=== PATIENT | female | born 1960 | race Caucasian/White ===

== ENCOUNTER 2016-11-28 12:37 | Emergency (ER) | payer BC ==
[~2016-11-28] VITALS: Ht 167.6 cm; Wt 93.0 kg
[2016-11-28] MEDS ORDERED: THYR15TA PO (12:48)
[2016-11-28] MEDS ORDERED: HYDR25TA4 PO (12:48)
[2016-11-28] MEDS ORDERED: ASPIRIN 81 MG TAB.CHEW PO ONE (13:00)
[2016-11-28 13:16] LABS: BASOPHILS # (AUTO) 0.1 K/uL (0.0-8.0); BASOPHILS % (AUTO) 0.8 % (0.0-2.0); EOSINOPHILS # (AUTO) 0.1 K/uL (0.0-0.7); EOSINOPHILS % (AUTO) 1.9 % (0.0-7.0); HEMOGLOBIN 14.8 G/DL (12.0-16.0); LYMPHOCYTES % (AUTO) 27.4 % (20.5-51.5); MEAN CORPUSCULAR HEMOGLOBIN 27.7 UUG (27.0-31.0); MEAN CORPUSCULAR HGB CONC 32 g/dL (32.0-37.0); MEAN CORPUSCULAR VOLUME 86.4 FL (81.0-99.0); MONOCYTES # (AUTO) 0.5 K/UL (0.1-1.30); MONOCYTES % (AUTO) 6.3 % (0.0-11.0); NEUTROPHILS # (AUTO) 4.7 K/UL (1.8-8.9); NEUTROPHILS % (AUTO) 63.6 % (38.5-71.5); PLATELET COUNT (AUTO) 264 K/UL (150-450); RED BLOOD CELL COUNT(AUTO) 5.33 MIL/UL (4.2-5.4); WHITE BLOOD COUNT (AUTO) 7.4 K/UL (4.0-11.2)
[2016-11-28] MEDS ORDERED: DICYCLOMINE HCL 20 MG TABLET PO STA (13:22)
[2016-11-28 13:23] LABS: CREATININE 0.7 mg/dL (0.6-1.3); POTASSIUM 3.9 mmol/L (3.5-5.1)
[2016-11-28] MEDS ORDERED: ASPIRIN 81 MG TAB.CHEW ONE (13:25)
[2016-11-28 13:29] LABS: BILIRUBIN,DIRECT 0.1 mg/dL (0.0-0.2); BILIRUBIN,TOTAL 0.4 mg/dL (0.2-1.0); TOTAL PROTEIN, SERUM 7.5 g/dL (6.4-8.2)
[2016-11-28] MEDS ORDERED: FAMOTIDINE. 20 MG/2 ML VIAL IV ONE ×2 (13:30→14:11)
[2016-11-28] MEDS ORDERED: MAG HYDROX/AL HYDROX/SIMETH 30 ML LIQUID UDC PO ONE (13:30)
[2016-11-28] MEDS ORDERED: MAG HYDROX/AL HYDROX/SIMETH 30 ML LIQUID UDC ONE (14:10)
--- NOTE | 2016-11-28 14:46 | NUR ---
Patient discharged to home in stable conditon. Written and verbal after care instructions given. Patient verbalizes understanding of instructions.pt walks in steady gait. pt says feels better. pt already took the heplock out.
[2016-11-28 14:47] VITALS: BP 121/83
== END 2016-11-28 14:47 | disposition home or self-care (01) ==
LOC: ER 12:37
DX: R07.9 Chest pain, unspecified (principal); I10 Essential (primary) hypertension; E03.9 Hypothyroidism, unspecified
CPT/HCPCS: 36415; 71010; 80048; 80076; 83690; 84443; 84484; 85025; 85730; 93005; 99285; A4663; 70030-TC; J3490

== ENCOUNTER 2017-02-08 21:29 | Emergency (ER) | payer BC ==
[~2017-02-08] VITALS: Ht 167.6 cm; Wt 90.7 kg
[~2017-02-08 21:29] MED LIST: HYDR25TA4 PO; THYR15TA PO
[2017-02-08] MEDS ORDERED: INSULIN REGULAR, HUMAN 300 UNIT/3 ML VIAL IV ONE (23:00)
[2017-02-08] MEDS ORDERED: IV NORMAL SALINE 1000 ML BAG IV ONE (23:00)
--- NOTE | 2017-02-08 23:16 | NUR ---
Patient discharged to home in stable conditon. Written and verbal after care instructions given. Patient verbalizes understanding of instructions.
== END 2017-02-08 23:18 | disposition home or self-care (01) ==
LOC: ER 21:30
DX: S93.504A Unspecified sprain of right lesser toe(s), initial encounter (principal); H66.91 Otitis media, unspecified, right ear; F17.200 Nicotine dependence, unspecified, uncomplicated; I10 Essential (primary) hypertension; E03.9 Hypothyroidism, unspecified; W22.8XXA Striking against or struck by other objects, initial encounter; Y93.89 Activity, other specified; Y92.9 Unspecified place or not applicable; Y99.9 Unspecified external cause status
CPT/HCPCS: 73660; 99284; A4663

== ENCOUNTER 2021-03-25 18:27 | Emergency (ER) | payer BC, OTHER ==
[~2021-03-25] VITALS: Ht 167.6 cm; Wt 99.8 kg
[~2021-03-25 18:27] MED LIST changes: +BENAZEPRIL/HCTZ PO; -HYDR25TA4 PO; -THYR15TA PO; +THYR90TA PO
[2021-03-25] MEDS ORDERED: OXYC-128 PO (19:17)
[2021-03-25] MEDS ORDERED: CLON0.1T PO (19:30)
--- NOTE | 2021-03-25 19:42 | NUR ---
Patient discharged to home in stable condition. PB=387/51, O2 sat=96%. Written and verbal after care instructions given. Patient verbalizes understanding of instructions. Stressed follow up or return to ER for worsening s/s.
[2021-03-25 19:48] VITALS: BP 130/51
== END 2021-03-25 19:52 | disposition home or self-care (01) ==
LOC: ER 18:30
DX: S00.33XA Contusion of nose, initial encounter (principal); W10.9XXA Fall (on) (from) unspecified stairs and steps, initial encounter; Y92.89 Other specified places as the place of occurrence of the external cause; E89.0 Postprocedural hypothyroidism; I10 Essential (primary) hypertension; Z79.890 Hormone replacement therapy; Z79.899 Other long term (current) drug therapy
CPT/HCPCS: 70160; A4663

== ENCOUNTER 2022-03-14 11:48 | Emergency (ER) | payer OTHER ==
[~2022-03-14] VITALS: Ht 167.6 cm; Wt 99.8 kg
[~2022-03-14 11:48] MED LIST changes: +CLON0.1T PO; +OXYC-128 PO
--- NOTE | 2022-03-14 12:27 | NUR ---
PT IS IN ROOM #1A. DR HUFFMAN EVALUATED THE PT.
[2022-03-14] MEDS ORDERED: MECLIZINE HCL 25 MG TABLET PO ONE (12:45)
[2022-03-14] MEDS ORDERED: MECLIZINE HCL 25 MG TABLET ONE (12:50)
[2022-03-14 12:55] LABS: HEMATOCRIT 41.2 % (31.2-41.9); MEAN CORPUSCULAR HEMOGLOBIN 29.6 uug (24.7-32.8); MEAN CORPUSCULAR VOLUME 85.3 fL (75.5-95.3); PLATELET COUNT (AUTO) 237 K/uL (179-408)
[2022-03-14 13:00] LABS: *BILIRUBIN,URIN NEGATIVE (NEGATIVE); *CLARITY,URINE CLEAR (CLEAR); *COLOR,URINE YELLOW (YELLOW); *KETONES,URINE NEGATIVE (NEGATIVE); *UROBILINOGEN,URINE 0.2 E.U./dl (NORMAL); LEUKOCYTE ESTERASE ,URINE 1+ (NEGATIVE); NITRITE, URINE NEGATIVE (NEGATIVE); UGLUCOSE NEGATIVE (NEGATIVE)
[2022-03-14 13:02] LABS: *BLOOD, URINE TRACE (NEGATIVE)
[2022-03-14 13:03] LABS: CREATININE 0.9 mg/dL (0.6-1.3); POTASSIUM 3.6 mmol/L (3.5-5.1)
[2022-03-14 13:15] LABS: THYROID STIMULATING HORMONE 1.503 mIU/mL (0.358-3.740)
[2022-03-14 13:20] LABS: BILIRUBIN,TOTAL 0.4 mg/dL (0.2-1.0); TOTAL PROTEIN, SERUM 7.4 g/dL (6.4-8.2)
[2022-03-14 13:25] LABS: BACTERIA,URINE FEW /HPF (NONE SEEN); RBC,URINE 0-3 /HPF (0-3); SQUAMOUS EPITHELIAL CELL,UR FEW /HPF (NONE SEEN)
[2022-03-14] MEDS ORDERED: CEFU500T66 PO (14:32)
[2022-03-14] MEDS ORDERED: MECL-159 PO (14:32)
--- NOTE | 2022-03-14 17:39 | NUR ---
PT WAS D/C'd TO HOME. D/C INSTRUCTIONS GIVEN TO THE PT BY DR HUFFMAN.
[2022-03-14 17:40] VITALS: BP 142/86
== END 2022-03-14 17:40 | disposition home or self-care (01) ==
LOC: ER 11:51
DX: N39.0 Urinary tract infection, site not specified (principal); R42 Dizziness and giddiness; R53.1 Weakness; R53.83 Other fatigue; E89.0 Postprocedural hypothyroidism; Z79.890 Hormone replacement therapy; I10 Essential (primary) hypertension
CPT/HCPCS: 36415; 71045; 84443; 84484; 85025; 87086; 93005; A4663; J7040; J8597

== ENCOUNTER 2022-08-29 15:57 | Emergency (ER) | payer OTHER ==
[~2022-08-29] VITALS: Ht 167.6 cm; Wt 90.7 kg
[~2022-08-29 15:57] MED LIST changes: +CEFU500T66 PO; +MECL-159 PO
--- NOTE | 2022-08-29 16:16 | NUR ---
Pt seen by . Safety measures in place. Will continue to monitor.
--- NOTE | 2022-08-29 17:25 | NUR ---
Patient discharged to home in stable condition. Written and verbal after care instructions given. Patient verbalizes understanding of instructions. Stressed follow up or return to ER for worsening s/s.
[2022-08-29 17:26] VITALS: BP 153/78
== END 2022-08-29 17:26 | disposition home or self-care (01) ==
LOC: ER 15:59
DX: T17.228A Food in pharynx causing other injury, initial encounter (principal); I10 Essential (primary) hypertension; E03.9 Hypothyroidism, unspecified; F17.210 Nicotine dependence, cigarettes, uncomplicated; Z79.899 Other long term (current) drug therapy; X58.XXXA Exposure to other specified factors, initial encounter; Y93.89 Activity, other specified; Y92.89 Other specified places as the place of occurrence of the external cause; Y99.8 Other external cause status
CPT/HCPCS: 70490; A4663

== ENCOUNTER 2023-06-21 16:08 | Emergency (ER) | payer MEDICAID, OTHER ==
[~2023-06-21] VITALS: Ht 167.6 cm; Wt 88.5 kg
[2023-06-21 16:42] LABS: *BILIRUBIN,URIN NEGATIVE (NEGATIVE); *BLOOD, URINE 1+ (NEGATIVE); *CLARITY,URINE CLEAR (CLEAR); *COLOR,URINE YELLOW (YELLOW); *KETONES,URINE TRACE (NEGATIVE); *PROTEIN,URINE NEGATIVE (NEGATIVE); *UROBILINOGEN,URINE 0.2 E.U./dl (NORMAL); LEUKOCYTE ESTERASE ,URINE TRACE (NEGATIVE); NITRITE, URINE NEGATIVE (NEGATIVE); PH,URINE 5.5 (5.0-8.0); UGLUCOSE NEGATIVE (NEGATIVE)
[2023-06-21 16:45] LABS: WBC,URINE 0-3 /HPF (0-3)
[2023-06-21 16:59] LABS: BASOPHILS # (AUTO) 0.1 K/UL (0.0-0.2); BASOPHILS % (AUTO) 1.7 % (0.0-2.0); EOSINOPHILS # (AUTO) 0.1 K/uL (0.0-0.7); HEMOGLOBIN 15.3 g/dL (10.9-14.3); LYMPHOCYTES # (AUTO) 1.5 K/uL (0.8-4.8); LYMPHOCYTES % (AUTO) 23.5 % (20.5-51.5); MEAN CORPUSCULAR HEMOGLOBIN 29.1 uug (24.7-32.8); MEAN CORPUSCULAR HGB CONC 33 g/dL (32.3-35.6); MEAN CORPUSCULAR VOLUME 87.5 fL (75.5-95.3); MONOCYTES # (AUTO) 0.4 K/uL (0.1-1.30); MONOCYTES % (AUTO) 5.5 % (0.0-11.0); NEUTROPHILS # (AUTO) 4.4 K/uL (1.8-8.9); NEUTROPHILS % (AUTO) 68.3 % (38.5-71.5); PLATELET COUNT (AUTO) 279 K/uL (179-408); RED BLOOD CELL COUNT(AUTO) 5.26 MIL/uL (3.63-4.92); RED CELL DISTRIBUTION WIDTH 14.2 % (12.3-17.7); WHITE BLOOD COUNT (AUTO) 6.5 K/uL (3.8-11.8)
[2023-06-21 17:02] LABS: DIFFERENTIAL COMMENT 1
[2023-06-21 17:10] LABS: CALCIUM 9.4 mg/dL (8.5-10.1); CREATININE 0.8 mg/dL (0.6-1.3); POTASSIUM 4.4 mmol/L (3.5-5.1)
[2023-06-21 17:15] LABS: ALBUMIN 3.8 g/dL (3.4-5.0); BILIRUBIN,DIRECT 0.2 mg/dL (0.0-0.2); BILIRUBIN,TOTAL 0.6 mg/dL (0.2-1.0); TOTAL PROTEIN, SERUM 7.9 g/dL (6.4-8.2)
[2023-06-21] MEDS ORDERED: LEVO125T8 PO (17:38)
[2023-06-21] MEDS ORDERED: BENA1TAB18 PO (17:38)
[2023-06-21] MEDS ORDERED: IBUP-1958 PO (18:44)
[2023-06-21 18:58] VITALS: BP 118/79; TEMP 98.2; O2SAT 98
== END 2023-06-21 18:59 | disposition home or self-care (01) ==
LOC: ER 16:09
DX: R10.31 Right lower quadrant pain (principal); E03.9 Hypothyroidism, unspecified; F17.200 Nicotine dependence, unspecified, uncomplicated; Z98.890 Other specified postprocedural states; Z79.899 Other long term (current) drug therapy
CPT/HCPCS: 36415; 83690; 85025; A4606; A4663

== ENCOUNTER 2023-09-20 12:43 | Emergency (ER) | payer MEDICAID ==
[~2023-09-20 12:43] MED LIST changes: +BENA1TAB18 PO; +IBUP-1958 PO; +LEVO125T8 PO
== END 2023-09-20 13:27 | disposition left against medical advice (07) ==
LOC: ER 12:45
DX: J34.89 Other specified disorders of nose and nasal sinuses (principal); Z53.21 Procedure and treatment not carried out due to patient leaving prior to being seen by health care provider

== ENCOUNTER 2023-09-20 15:43 | Emergency (ER) | payer MEDICAID ==
[~2023-09-20] VITALS: Ht 167.6 cm; Wt 90.7 kg
[2023-09-20 15:44] VITALS: O2SAT 98
== END 2023-09-20 18:10 | disposition home or self-care (01) ==
LOC: ER 16:13
DX: S00.33XA Contusion of nose, initial encounter (principal); R51.9 Headache, unspecified; E03.9 Hypothyroidism, unspecified; F17.200 Nicotine dependence, unspecified, uncomplicated; Z90.49 Acquired absence of other specified parts of digestive tract; W18.39XA Other fall on same level, initial encounter; Y93.89 Activity, other specified; Y92.89 Other specified places as the place of occurrence of the external cause; Y99.8 Other external cause status
CPT/HCPCS: 70450; 70486; A4606; A4663